=== PATIENT | male | born 1940 | race Caucasian/White ===

== ENCOUNTER → 2020-06-27 08:39 | Outpatient (CLI) | payer OTHER | END | disposition home or self-care (01) | LOC: D.CT 06-19 11:30 → D.NM 08:39 | PROVIDERS: ATTEND Internal Medicine Hematology & Oncology | DX: C61 Malignant neoplasm of prostate (principal) ==

== ENCOUNTER 2020-08-11 06:34 | Day surgery (SDC) | payer OTHER ==
[~2020-08-11] VITALS: Ht 172.7 cm; Wt 65.8 kg
[~2020-08-11 06:34] MED LIST: ALBUTEROL SULF8.5 GM INH; PERCOCET 5-3251 TAB PO; PLAVIX75 MG PO
[2020-08-11 07:02] LABS: ANION GAP 13.2 mmol/L (8-16); CALCIUM 9.2 mg/dL (8.5-10.1); CARBON DIOXIDE 27.1 mmol/L (21.0-32.0); CREATININE - SERUM 2.1 mg/dL (0.6-1.3); POTASSIUM - SERUM 4.3 mmol/L (3.5-5.1)
[2020-08-11 07:23] LABS: BASOPHILS 0.5 % (0-2); EOSINOPHILS 16.8 % (0-7); HEMATOCRIT 32.4 % (42.0-54.0); HEMOGLOBIN 10.3 g/dL (13.5-17.5); IMMATURE GRANULOCYTES 0.2 % (0-5); LYMPHOCYTE ABS# 1.63 10x3/uL (1.32-3.57); LYMPHOCYTES 25.8 % (15-50); MCH 29.8 pg (26.0-34.0); MCHC 31.8 g/dL (31.0-37.0); MCV 93.6 fL (80.0-100.0); MEAN PLATELET VOLUME 8.7 fL (7.4-10.4); MONOCYTES 10.5 % (2-11); NEUTROPHIL ABS# 2.92 10x3/uL (1.78-5.38); NEUTROPHILS 46.2 % (40-80); PLATELET COUNT 293 10x3/uL (130-400); RBC 3.46 10x6/uL (4.20-6.10); RDW 15.6 % (11.5-14.5); WBC 6.3 10x3/uL (4.8-10.8)
[2020-08-11 07:27] LABS: APTT 29.5 SECONDS (22.8-39.4); INR 1.08 (0.85-1.17)
[2020-08-11 07:45] VITALS: BP 133/83; Ht 172.7 cm; Wt 65.8 kg
--- NOTE | 2020-08-11 09:54 | NUR ---
PT STATES NO PAIN. HE STATED "I DIDNT FEEL NOTHING"
== END 2020-08-11 11:30 | disposition home or self-care (01) ==
LOC: D.OPS 06:34
PROVIDERS: Anesthesiology; ATTEND Surgery
DX: C61 Malignant neoplasm of prostate (principal)